=== PATIENT | male | born 1985 | race Caucasian/White ===

== ENCOUNTER 2017-12-10 00:31 | Emergency (ER) | payer OTHER ==
[~2017-12-10] VITALS: Ht 167.6 cm; Wt 124.6 kg
[~2017-12-10 00:31] MED LIST: IBUP-103 PO
[2017-12-10 00:35] VITALS: TEMP 36.8; Ht 167.6 cm; Wt 124.6 kg
[2017-12-10 00:55] VITALS: O2SAT 99
[2017-12-10 01:05] LABS: BASO % 0.2 %; BASO ABS # 0.03 K/uL (0-0.2); EOS ABS # 0.17 K/uL (0-0.5); HEMATOCRIT 51.9 % (42-52); IG# 0.06 K/uL (0.00-0.02); LYMPH % 16.2 %; LYMPH ABS # 2.83 K/uL (1.2-3.4); MEAN CELL VOLUME 83.3 fL (80-100); MEAN CORPUSCULAR HEMOGLOBIN 30.5 pg (25-34); MEAN CORPUSCULAR HGB CONC 36.6 g/dl (32-36); MEAN PLATELET VOLUME 10.5 fL (7.4-10.4); MONO % 6.5 %; MONO ABS # 1.14 K/uL (0.11-0.59); NEUT % 75.8 %; NEUT ABS # 13.28 K/uL (1.4-6.5); PLATELET COUNT 255 K/uL (130-400); RED CELL DISTRIBUTION WIDTH CV 12.8 % (11.5-14.5); RED CELL DISTRIBUTION WIDTH SD 37.8 fL (36.4-46.3); WHITE BLOOD COUNT 17.51 K/uL (4.8-10.8)
[2017-12-10] MEDS ORDERED: ALUM1SUS57 PO (01:13)
[2017-12-10 01:30] LABS: ALBUMIN 4.4 gm/dl (3.4-5.0); ALT/SGPT 31 U/L (12-78); AST/SGOT 17 U/L (15-37); BLOOD UREA NITROGEN 9 mg/dl (7-18); CALCIUM 9.3 mg/dl (8.5-10.1); CARBON DIOXIDE 27 mmol/L (21-32); CREATININE 1.13 mg/dl (0.60-1.40); GLUCOSE 119 mg/dl (70-99); LIPASE 105 U/L (73-393); POTASSIUM 3.5 mmol/L (3.5-5.1); SODIUM 139 mmol/L (136-145)
[2017-12-10 01:35] LABS: ALKALINE PHOSPHATASE 89 U/L (45-117); TOTAL PROTEIN 8.7 gm/dl (6.4-8.2)
[2017-12-10] MEDS ORDERED: OPTIRAY 320 IV PRN (01:45)
[2017-12-10 02:15] VITALS: BP 148/108
--- NOTE | 2017-12-10 02:43 | EMERGENCY ROOM VISIT NOTE ---
History First contact with patient: 00:33 Chief Complaint: ABDOMINAL PAIN Stated Complaint: SLIGHT CHEST PAIN,STOMACH GETS HARD,TUNNEL VISION History of Present Illness The patient is a 32 year old male who presents to the Emergency Room with complaints of upper abdominal discomfort with cough for the past several days. He describes the pain in his bloating, ranging in severity 5 out of 10. It does not radiate. Patient states eating sometimes makes it worse nothing really makes it better. Patient thinks his abdomen is distended. Patient states he is worried about everything that is going on and [facility] and got lightheaded and nearly passed out. He did get tunnel vision with his near syncopal episode. This was short-lived in nature. No complete loss of vision. Patient denies chest pain, dyspnea, headache, neck stiffness, fever, chills, productive cough, vomiting, diarrhea, flank pain, back pain, urinary symptoms. No prior surgeries. Patient does smoke and chew tobacco. He also smokes marijuana and occasionally drinks. No other recreational drugs per patient. Review of Systems An 10 system review of systems was completed with positives and pertinent negatives listed in the HPI. Past Medical/Surgical History Medical Problems: (1) No Known Active Medical Problems Social History Smoking Status: Current Every Day Smoker Smokeless Tobacco Use: Yes Alcohol Use: occasionally Drug Use: marijuana Housing Status: lives with family Occupation Status: employed Current/Historical Medications Scheduled PRN Alum & Mag Hydrox-Simethicone (Mylanta Maximum Strength 400-400-40 mg/5Ml), 1 DOSE PO DIRECTED PRN for HEARTBURN/INDIGESTION Physical Exam Vital Signs Date Time Temp Pulse Resp B/P (MAP) Pulse Ox O2 Delivery O2 Flow Rate FiO2 12/10/17 02:15 80 18 148/108 98 Room Air 12/10/17 00:59 94 12/10/17 00:55 99 Room Air 12/10/17 00:35 36.8 79 18 181/95 94 Room Air Physical Exam VITALS: Vitals are noted on the nurse's note and reviewed by myself. Vital signs hypertensive GENERAL: White male, in no acute distress, nondiaphoretic, well-developed well- nourished. SKIN: The skin was without rashes, erythema, edema, or bruising. There is no tenting of the skin. Capillary reflex less than 2 seconds. HEAD: Normocephalic atraumatic. EARS: External auditory canals clear, tympanic membranes pearly garcia without erythema or effusion bilaterally. EYES: Pupils equal round and reactive to light and accommodation. Conjunctivae without injection, sclerae without icterus. Extraocular movements intact. NOSE: Patent, turbinates without inflammation or discharge. MOUTH: Mucous membranes moist. Pharynx without erythema or exudate. Uvula midline. Airway patent. Tongue does not deviate. NECK: Supple without nuchal rigidity. No lymphadenopathy. No thyromegaly. Cervical spine is nontender. No JVD. HEART: Regular rate and rhythm without murmurs gallops or rubs. LUNGS: Clear to auscultation bilaterally without wheezes, rales or rhonchi. No retractions or accessory muscle use. ABDOMEN: Positive bowel sounds x 4. Normal tympanic percussion. Soft, protuberant, obese, tender to palpation upper abdomen, without masses or organomegaly. Parmar sign negative. No guarding or rebound tenderness. No CVA tenderness MUSCULOSKELETAL: No muscle atrophy, erythema, or edema noted. NEURO: Patient was alert and oriented to person place and time. Normal sensation to light and sharp touch. No focal neurological deficits. Medical Decision & Procedures Laboratory Results 12/10/17 00:55 Red Blood Count 6.23, Mean Corpuscular Volume 83.3, Mean Corpuscular Hemoglobin 30.5, Mean Corpuscular Hemoglobin Concent 36.6, Mean Platelet Volume 10.5, Neutrophils (%) (Auto) 75.8, Lymphocytes (%) (Auto) 16.2, Monocytes (%) (Auto) 6.5, Eosinophils (%) (Auto) 1.0, Basophils (%) (Auto) 0.2, Neutrophils # (Auto) 13.28, Lymphocytes # (Auto) 2.83, Monocytes # (Auto) 1.14, Eosinophils # (Auto) 0.17, Basophils # (Auto) 0.03 12/10/17 00:55 Test 12/10/17 00:55 12/10/17 00:58 White Blood Count 17.51 K/uL (4.8-10.8) Red Blood Count 6.23 M/uL (4.7-6.1) Hemoglobin 19.0 g/dL (14.0-18.0) Hematocrit 51.9 % (42-52) Mean Corpuscular Volume 83.3 fL (80-100) Mean Corpuscular Hemoglobin 30.5 pg (25-34) Mean Corpuscular Hemoglobin Concent 36.6 g/dl (32-36) Platelet Count 255 K/uL (130-400) Mean Platelet Volume 10.5 fL (7.4-10.4) Neutrophils (%) (Auto) 75.8 % Lymphocytes (%) (Auto) 16.2 % Monocytes (%) (Auto) 6.5 % Eosinophils (%) (Auto) 1.0 % Basophils (%) (Auto) 0.2 % Neutrophils # (Auto) 13.28 K/uL (1.4-6.5) Lymphocytes # (Auto) 2.83 K/uL (1.2-3.4) Monocytes # (Auto) 1.14 K/uL (0.11-0.59) Eosinophils # (Auto) 0.17 K/uL (0-0.5) Basophils # (Auto) 0.03 K/uL (0-0.2) RDW Standard Deviation 37.8 fL (36.4-46.3) RDW Coefficient of Variation 12.8 % (11.5-14.5) Immature Granulocyte % (Auto) 0.3 % Immature Granulocyte # (Auto) 0.06 K/uL (0.00-0.02) Anion Gap 7.0 mmol/L (3-11) Est Creatinine Clear Calc Drug Dose 118.0 ml/min Estimated GFR () 99.8 Estimated GFR (Non- 86.1 BUN/Creatinine Ratio 7.8 (10-20) Calcium Level 9.3 mg/dl (8.5-10.1) Total Bilirubin 0.9 mg/dl (0.2-1) Direct Bilirubin 0.2 mg/dl (0-0.2) Aspartate Amino Transf (AST/SGOT) 17 U/L (15-37) Alanine Aminotransferase (ALT/SGPT) 31 U/L (12-78) Alkaline Phosphatase 89 U/L (45-117) Troponin I < 0.015 ng/ml (0-0.045) Total Protein 8.7 gm/dl (6.4-8.2) Albumin 4.4 gm/dl (3.4-5.0) Lipase 105 U/L (73-393) Bedside Troponin I < 0.030 ng/ml (0-0.045) ED Course Prior records/ancillary studies reviewed. Triage Nursing notes reviewed. The patient's history was concerning for upper abdominal pain. Differential diagnosis: Etiologies such as appendicitis, cardiac, diverticulitis, PUD, biliary pathology , UTI, pancreatitis, obstruction, mesenteric ischemia, aortic pathology, infections, inflammatory bowel disease, renal colic, as well as others were entertained. Physical examination findings: As above. ER treatment provided: pt was observed On reassessment the patient felt better. Diagnostics interpreted by me: ECG: Normal sinus, normal intervals, no acute ST-T wave changes. Impression normal sinus rhythm interpreted by myself The labs revealed leukocytosis, per chart review patient normally has an elevated white blood count. Imaging studies: Chest x-ray with no acute consolidation, pneumothorax free of my interpretation CT ABDOMEN & PELVIS: No acute findings in the abdomen and pelvis to explain patient's symptoms. The liver, gallbladder, biliary tree, pancreas, spleen, stomach, small bowel, colon, and appendix are normal. No bowel wall thickening or bowel obstruction. Too small to characterize hypodensities within the mid right kidney and inferior left kidney presumably represent small cysts. Recommend follow-up ultrasound to demonstrate interval stability. No hydronephrosis or nephrolithiasis. Bilateral L5 pars defect with out significant anterolisthesis at L5-S1. There is partial ceases at L4-5 likely due to degenerative disc disease and facet arthropathy. Radiologist: Milagros Giles MD Exam and history seem consistent with abdominal pain with unclear etiology. Patient has had a chronic leukocytosis by chart review. He was advised to follow-up family care for this. Is advised to get an outpatient ultrasound for possible cyst seen on CT imaging. Patient was neurovascularly and neurologically intact. He did not have acute abdomen on exam. He was well- appearing. Patient was encouraged to quit smoking doing illegal drugs. He is advised to return to the ER meaty for abdominal pain, fevers, vomiting, worsening signs or symptoms or as needed.By the evaluation outlined above emergent etiologies such as appendicitis, diverticulitis, PUD, biliary pathology , UTI, pancreatitis, obstruction, mesenteric ischemia, aortic pathology, infections, inflammatory bowel disease, renal colic, as well as others were deemed relatively unlikely. The pt informed about the findings as listed above. All questions were answered and pleased with the treatment. Return instructions were outlined and the patient was discharged in stable condition. Referral: The patient was referred back to their primary care physician for follow-up in 2 to 3 days for a recheck of the current condition. Case reviewed with my attending The chart was completed utilizing [employer] Speech voice recognition software. Grammatical errors, random word insertions, pronoun errors, and incomplete sentences are an occassional consequence of this system due to software limitations, ambient noise, and hardware issues. Any formal questions or concerns about the content, text, or information contained within the body of this dictation should be directly addressed to the physician nurseryman assistant for clarification. Medical Decision As above Medication Reconcilliation Current Medication List: was personally reviewed by me Blood Pressure Screening Patient's blood pressure: Elevated blood pressure Blood pressure disposition: Elevated BP felt to be situational Impression Primary Impression: Upper abdominal pain Additional Impression: Leukocytosis Departure Information Dispostion Home / Self-Care Condition GOOD Referrals No Doctor, Assigned (PCP) Patient Instructions My [facility] Additional Instructions Recommend stop smoking and illegal drugs. Ibuprofen(Motrin, Advil) may be used for fever or pain. Use 600mg every six hours as needed. Take with food. Avoid using more than 2400mg in a 24 hour period. Do not use 2400mg per day for more than three consecutive days without physician direction. Prolonged inappropriate use can lead to stomach upset or ulcers. (AND/OR) Acetaminophen(Tylenol) may be used for fever or pain. Use 500mg every six hours as needed. Avoid using more than 2000mg in a 24 hour period. You need to get an outpatient ultrasound on your kidneys. You need further workup for your chronically elevated white blood count. Your family doctor can do this. Rest and drink plenty of fluids as tolerated. Slow sips of water or sports drinks are recommended instead of large amounts all at once. Continue current medications. Once your stomach is settled start with a clear liquid diet (jello, soup broth, etc.) and then advance as tolerated. You should avoid full, heavy meals for about 24 hrs from the time your symptoms resolved. Return to the ER immediately for worsening or persistent abdominal pain, vomiting, fevers, chest pains, difficulty breathing, black or bloody stools, worsening of your condition, or as needed. Follow up with your primary physician in 2-3 days for a recheck of your current condition. Problem Qualifiers
[2017-12-10 02:58] VITALS: PULSE 75; O2SAT 100
--- NOTE | 2017-12-10 06:14 | DIAGNOSTIC IMAGING REPORT ---
CHEST ONE VIEW PORTABLE CLINICAL HISTORY: 32 years-old Male presenting with CHEST PAIN. TECHNIQUE: Portable upright AP view of the chest was obtained. COMPARISON: None. FINDINGS: Cardiomediastinal silhouette normal. No focal opacity. No large effusion or pneumothorax. Osseous structures normal. Upper abdomen normal. IMPRESSION: 1. No acute cardiopulmonary disease. Electronically signed by: Bhanu Washington M.D. 12/10/2017 6:13 AM Dictated Date/Time: 12/10/2017 6:12 AM
--- NOTE | 2017-12-10 07:01 | DIAGNOSTIC IMAGING REPORT ---
ABD/PELVIS IV CONTRAST ONLY CLINICAL HISTORY: 32 years-old Male presenting with upper abd pain. TECHNIQUE: Multidetector CT of the abdomen and pelvis was performed after the administration of intravenous contrast. IV contrast: 94 mL of Optiray 320. A dose lowering technique was used consistent with the principles of ALARA (as low as reasonably achievable). COMPARISON: None. CT DOSE (mGy.cm): The estimated cumulative dose is 1534.19 mGy.cm. FINDINGS: Gang Supervisor topogram: Unremarkable. Lung bases: Minimal basilar opacities, likely atelectasis. Normal heart size. No pericardial or pleural effusion. Liver: Normal morphology. No liver lesion. Patent hepatic vasculature. Biliary: No intrahepatic or extrahepatic biliary ductal dilatation. Normal gallbladder. Pancreas: Mild parenchymal atrophy. Spleen: Normal. Adrenal glands: Normal. Kidneys and ureters: Subcentimeter hypodensities likely cysts. Otherwise normal renal parenchyma. No nephrolithiasis. No hydronephrosis. Ureters normal. Bladder: Incompletely evaluated secondary to underdistention. Pelvic organs: Prostate and seminal vesicles normal. Bowel: Few diverticula in the proximal sigmoid colon. No bowel obstruction. The appendix is normal. Peritoneal cavity: No free fluid or intraperitoneal gas. Lymph nodes: Few prominent lymph nodes in the alfredo hepatis and portacaval region, likely reactive. No pathologically enlarged lymph nodes by CT size criteria. Vasculature: Aorta and IVC patent and normal in caliber. Abdominal wall: Gynecomastia. Musculoskeletal: Bilateral pars defects of L5. IMPRESSION: 1. No acute intra-abdominal pathology. 2. Few sigmoid colon diverticula without evidence of diverticulitis. Electronically signed by: Bhanu Washington M.D. 12/10/2017 6:59 AM Dictated Date/Time: 12/10/2017 6:53 AM
== END 2017-12-10 02:55 | disposition home or self-care (01) ==
LOC: C.EDB 00:32
DX: R10.10 Upper abdominal pain, unspecified (principal); R07.9 Chest pain, unspecified; D72.829 Elevated white blood cell count, unspecified; F17.210 Nicotine dependence, cigarettes, uncomplicated

== ENCOUNTER 2017-12-12 20:59 | Emergency (ER) | payer OTHER ==
[~2017-12-12] VITALS: Ht 167.6 cm; Wt 124.0 kg
[~2017-12-12 20:59] MED LIST changes: +ALUM1SUS57 PO; -IBUP-103 PO
[2017-12-12 21:14] VITALS: TEMP 37.3; Ht 167.6 cm; Wt 124.0 kg
[2017-12-12] MEDS ORDERED: LIDOCAINE HCL 2% VISC SOLN 20 ML UDC PO STA (21:30)
[2017-12-12] MEDS ORDERED: SODIUM CHLORIDE 0.9% 1000ML 1,000 ML IV STA (21:30)
[2017-12-12] MEDS ORDERED: DICYCLOMINE HCL 10 MG/ML 2 ML AMP IM ONE (21:30)
[2017-12-12] MEDS ORDERED: ALUMINUM/MAGNESIUM SUSP 30 ML UDC PO STA (21:30)
[2017-12-12] MEDS ORDERED: ONDANSETRON INJ 2 MG/ML 2 ML VIAL IV STA (21:30)
[2017-12-12 21:42] VITALS: O2SAT 99
[2017-12-12 21:53] LABS: BASO % 0.1 %; BASO ABS # 0.02 K/uL (0-0.2); EOS % 1.2 %; EOS ABS # 0.16 K/uL (0-0.5); HEMATOCRIT 50.2 % (42-52); IG# 0.04 K/uL (0.00-0.02); LYMPH % 17.9 %; LYMPH ABS # 2.41 K/uL (1.2-3.4); MEAN CELL VOLUME 82.2 fL (80-100); MEAN CORPUSCULAR HEMOGLOBIN 31.1 pg (25-34); MEAN CORPUSCULAR HGB CONC 37.8 g/dl (32-36); MEAN PLATELET VOLUME 10.8 fL (7.4-10.4); MONO % 6.8 %; MONO ABS # 0.92 K/uL (0.11-0.59); NEUT % 73.7 %; NEUT ABS # 9.95 K/uL (1.4-6.5); PLATELET COUNT 253 K/uL (130-400); RED CELL DISTRIBUTION WIDTH CV 12.4 % (11.5-14.5); RED CELL DISTRIBUTION WIDTH SD 37.1 fL (36.4-46.3)
[2017-12-12 22:18] LABS: ALBUMIN 4.2 gm/dl (3.4-5.0); CALCIUM 9.1 mg/dl (8.5-10.1); CREATININE 0.94 mg/dl (0.60-1.40); POTASSIUM 3.4 mmol/L (3.5-5.1)
[2017-12-12 22:21] LABS: TOTAL PROTEIN 8.3 gm/dl (6.4-8.2)
--- NOTE | 2017-12-12 22:43 | DIAGNOSTIC IMAGING REPORT ---
GALLBLADDER-ABD LIMITED CLINICAL HISTORY: upper abd pain pain. Nausea. TECHNIQUE: Ultrasound COMPARISON STUDY: None FINDINGS: Normal gallbladder. No shadowing gallstones. Common bile duct 3 mm. Liver is uniform. The pancreas and right kidney are unremarkable. Right kidney is negative for hydronephrosis. IMPRESSION: Normal study The above report was generated using voice recognition software. It may contain grammatical, syntax or spelling errors. Electronically signed by: Sarabjit Vee M.D. 12/12/2017 10:41 PM Dictated Date/Time: 12/12/2017 10:41 PM
[2017-12-12] MEDS ORDERED: SUCRALFATE 1 GM/10 ML UDC PO STA (23:31)
[2017-12-13] MEDS ORDERED: PANTOprazole SOD 40 MG TAB PO STA (00:07)
--- NOTE | 2017-12-13 00:23 | EMERGENCY ROOM VISIT NOTE ---
History First contact with patient: 21:23 Chief Complaint: ABDOMINAL PAIN Stated Complaint: KIDNEY PAIN (WAS IN ON TUESDAY) History of Present Illness The patient is a 32 year old male who presents to the Emergency Room with complaints of upper abdominal pain today after eating eggs and chicken noodle soup. Patient was seen here Tuesday night by myself for similar complaint. His CT scan then was negative. Patient states he was doing better until today. He states he was doing bland diet as instructed. He has an appointment Tuesday with his family care doctor. He describes the pain as bloating, ranging in severity 6 out of 10 throughout the upper abdomen with some reflux symptoms. Patient states he has now been having diarrhea. No recent antibiotics. No well water. He does camp though. No bad food exposure. Patient denies chest pain, dyspnea, nausea, vomiting, back pain, urinary symptoms, testicular pain, penile pain. No colonoscopy or endoscopy in the past. Review of Systems An 10 system review of systems was completed with positives and pertinent negatives listed in the HPI. Past Medical/Surgical History Medical Problems: (1) No Known Active Medical Problems Social History Smoking Status: Current Every Day Smoker Alcohol Use: occasionally Drug Use: marijuana Housing Status: lives with family Occupation Status: employed Current/Historical Medications Scheduled PRN Alum & Mag Hydrox-Simethicone (Mylanta Maximum Strength 400-400-40 mg/5Ml), 1 DOSE PO DIRECTED PRN for HEARTBURN/INDIGESTION Physical Exam Vital Signs Date Time Temp Pulse Resp B/P (MAP) Pulse Ox O2 Delivery O2 Flow Rate FiO2 12/12/17 22:45 77 20 157/114 97 Room Air 12/12/17 21:50 88 12/12/17 21:42 99 Room Air 12/12/17 21:14 37.3 92 18 167/111 99 Room Air Physical Exam VITALS: Vitals are noted on the nurse's note and reviewed by myself. Vital signs hypertensive. GENERAL: White male, in no acute distress, nondiaphoretic, well-developed well- nourished. SKIN: The skin was without rashes, erythema, edema, or bruising. There is no tenting of the skin. Capillary reflex less than 2 seconds. HEAD: Normocephalic atraumatic. EARS: External auditory canals clear, tympanic membranes pearly garcia without erythema or effusion bilaterally. EYES: Pupils equal round and reactive to light and accommodation. Conjunctivae without injection, sclerae without icterus. Extraocular movements intact. NOSE: Patent, turbinates without inflammation or discharge. MOUTH: Mucous membranes moist. Pharynx without erythema or exudate. Uvula midline. Airway patent. Tongue does not deviate. NECK: Supple without nuchal rigidity. No lymphadenopathy. No thyromegaly. Cervical spine is nontender. No JVD. HEART: Regular rate and rhythm without murmurs gallops or rubs. LUNGS: Clear to auscultation bilaterally without wheezes, rales or rhonchi. No retractions or accessory muscle use. ABDOMEN: Positive bowel sounds x 4. Normal tympanic percussion. Soft, protuberant, obese, tender to palpation upper abdomen, without masses or organomegaly. Parmar sign negative. No guarding or rebound tenderness. No CVA tenderness MUSCULOSKELETAL: No muscle atrophy, erythema, or edema noted. NEURO: Patient was alert and oriented to person place and time. Normal sensation to light and sharp touch. No focal neurological deficits. Medical Decision & Procedures Laboratory Results 12/12/17 21:40 Red Blood Count 6.11, Mean Corpuscular Volume 82.2, Mean Corpuscular Hemoglobin 31.1, Mean Corpuscular Hemoglobin Concent 37.8, Mean Platelet Volume 10.8, Neutrophils (%) (Auto) 73.7, Lymphocytes (%) (Auto) 17.9, Monocytes (%) (Auto) 6.8, Eosinophils (%) (Auto) 1.2, Basophils (%) (Auto) 0.1, Neutrophils # (Auto) 9.95, Lymphocytes # (Auto) 2.41, Monocytes # (Auto) 0.92, Eosinophils # (Auto) 0.16, Basophils # (Auto) 0.02 12/12/17 21:40 Test 12/12/17 21:40 White Blood Count 13.50 K/uL (4.8-10.8) Red Blood Count 6.11 M/uL (4.7-6.1) Hemoglobin 19.0 g/dL (14.0-18.0) Hematocrit 50.2 % (42-52) Mean Corpuscular Volume 82.2 fL (80-100) Mean Corpuscular Hemoglobin 31.1 pg (25-34) Mean Corpuscular Hemoglobin Concent 37.8 g/dl (32-36) Platelet Count 253 K/uL (130-400) Mean Platelet Volume 10.8 fL (7.4-10.4) Neutrophils (%) (Auto) 73.7 % Lymphocytes (%) (Auto) 17.9 % Monocytes (%) (Auto) 6.8 % Eosinophils (%) (Auto) 1.2 % Basophils (%) (Auto) 0.1 % Neutrophils # (Auto) 9.95 K/uL (1.4-6.5) Lymphocytes # (Auto) 2.41 K/uL (1.2-3.4) Monocytes # (Auto) 0.92 K/uL (0.11-0.59) Eosinophils # (Auto) 0.16 K/uL (0-0.5) Basophils # (Auto) 0.02 K/uL (0-0.2) RDW Standard Deviation 37.1 fL (36.4-46.3) RDW Coefficient of Variation 12.4 % (11.5-14.5) Immature Granulocyte % (Auto) 0.3 % Immature Granulocyte # (Auto) 0.04 K/uL (0.00-0.02) Urine Color DK YELLOW Urine Appearance CLEAR (CLEAR) Urine pH 5.0 (4.5-7.5) Urine Specific Buckhorn 1.034 (1.000-1.030) Urine Protein NEG (NEG) Urine Glucose (UA) NEG (NEG) Urine Ketones 1+ (NEG) Urine Occult Blood NEG (NEG) Urine Nitrite NEG (NEG) Urine Bilirubin NEG (NEG) Urine Urobilinogen NEG (NEG) Urine Leukocyte Esterase NEG (NEG) Anion Gap 8.0 mmol/L (3-11) Est Creatinine Clear Calc Drug Dose 141.5 ml/min Estimated GFR () 124.7 Estimated GFR (Non- 107.6 BUN/Creatinine Ratio 10.8 (10-20) Calcium Level 9.1 mg/dl (8.5-10.1) Total Bilirubin 1.2 mg/dl (0.2-1) Direct Bilirubin 0.2 mg/dl (0-0.2) Aspartate Amino Transf (AST/SGOT) 21 U/L (15-37) Alanine Aminotransferase (ALT/SGPT) 35 U/L (12-78) Alkaline Phosphatase 82 U/L (45-117) Total Protein 8.3 gm/dl (6.4-8.2) Albumin 4.2 gm/dl (3.4-5.0) Lipase 146 U/L (73-393) Medications Administered Medications (Trade) Dose Ordered Sig/Don Route Start Time Stop Time Status Last Admin Dose Admin Sodium Chloride 1,000 ml @ 999 mls/hr Q1H1M STAT IV 12/12/17 21:30 12/12/17 22:30 DC 12/12/17 21:44 999 MLS/HR Dicyclomine HCl (Bentyl Inj) 20 mg NOW ONCE IM 12/12/17 21:30 12/12/17 21:33 DC 12/12/17 21:44 20 MG Ondansetron HCl (Zofran Inj) 4 mg NOW STAT IV 12/12/17 21:30 12/12/17 21:33 DC 12/12/17 21:44 4 MG Lidocaine HCl (Viscous Lidocaine 2% Soln) 10 ml NOW STAT PO 12/12/17 21:30 12/12/17 21:33 DC 12/12/17 21:43 10 ML Al Hydroxide/Mg Hydroxide (Maalox Susp) 30 ml NOW STAT PO 12/12/17 21:30 12/12/17 21:33 DC 12/12/17 21:44 30 ML Sucralfate (Carafate Susp) 1 gm NOW STAT PO 12/12/17 23:31 12/12/17 23:32 DC 12/12/17 23:36 1 GM ED Course Prior records/ancillary studies reviewed. Triage Nursing notes reviewed. Additional history obtained from family. The patient's history was concerning for abdominal pain. Differential diagnosis: Etiologies such as appendicitis, diverticulitis, PUD, biliary pathology, UTI, pancreatitis, obstruction, mesenteric ischemia, aortic pathology, infections, inflammatory bowel disease, renal colic, as well as others were entertained. Physical examination findings: As above. ER treatment provided: GI cocktail On reassessment the patient felt better. Diagnostics interpreted by me: The labs revealed leukocytosis, improved from the other day. Imaging studies: [~ rep ct add3]] GALLBLADDER-ABD LIMITED CLINICAL HISTORY: upper abd pain pain. Nausea. TECHNIQUE: Ultrasound COMPARISON STUDY: None FINDINGS: Normal gallbladder. No shadowing gallstones. Common bile duct 3 mm. Liver is uniform. The pancreas and right kidney are unremarkable. Right kidney is negative for hydronephrosis. IMPRESSION: Normal study The above report was generated using voice recognition software. It may contain grammatical, syntax or spelling errors. Electronically signed by: Sarabjit Vee M.D. ABD/PELVIS IV CONTRAST ONLY CLINICAL HISTORY: 32 years-old Male presenting with upper abd pain. TECHNIQUE: Multidetector CT of the abdomen and pelvis was performed after the administration of intravenous contrast. IV contrast: 94 mL of Optiray 320. A dose lowering technique was used consistent with the principles of ALARA (as low as reasonably achievable). COMPARISON: None. CT DOSE (mGy.cm): The estimated cumulative dose is 1534.19 mGy.cm. FINDINGS: Braille Coder topogram: Unremarkable. Lung bases: Minimal basilar opacities, likely atelectasis. Normal heart size. No pericardial or pleural effusion. Liver: Normal morphology. No liver lesion. Patent hepatic vasculature. Biliary: No intrahepatic or extrahepatic biliary ductal dilatation. Normal gallbladder. Pancreas: Mild parenchymal atrophy. Spleen: Normal. Adrenal glands: Normal. Kidneys and ureters: Subcentimeter hypodensities likely cysts. Otherwise normal renal parenchyma. No nephrolithiasis. No hydronephrosis. Ureters normal. Bladder: Incompletely evaluated secondary to underdistention. Pelvic organs: Prostate and seminal vesicles normal. Bowel: Few diverticula in the proximal sigmoid colon. No bowel obstruction. The appendix is normal. Peritoneal cavity: No free fluid or intraperitoneal gas. Lymph nodes: Few prominent lymph nodes in the alfredo hepatis and portacaval region, likely reactive. No pathologically enlarged lymph nodes by CT size criteria. Vasculature: Aorta and IVC patent and normal in caliber. Abdominal wall: Gynecomastia. Musculoskeletal: Bilateral pars defects of L5. IMPRESSION: 1. No acute intra-abdominal pathology. 2. Few sigmoid colon diverticula without evidence of diverticulitis. Electronically signed by: Bhanu Washington M.D. Exam and history seem consistent with abdominal pain with unclear etiology. Patient did feel better after the GI cocktail and Carafate. This could be gastritis. He was started on PPI. Patient did CT scan a few days ago that was negative. Ultrasound was negative today. White count is improving. Patient was advised to follow-up with GI for further evaluation and workup for his ongoing symptoms. He is advised to bland diet. He was advised to follow-up as scheduled tomorrow with the family care doctor here in the ER sooner for abdominal pain, fevers, vomiting, worsening signs or symptoms or as needed. Using shared decision radiation process we both elected not to repeat the CAT scan. Patient understands the risks involved of possible infection or surgical interventions that might be warranted but seems less likely as he felt much improved after being medicated as above and had a normal ultrasound and CAT scan from the other day. Patient was unable to provide a stool specimen. He was advised he still the diarrhea to submit 1 to his family care doctor for further evaluation workup for his diarrhea. By the evaluation outlined above emergent etiologies such as appendicitis, diverticulitis, biliary pathology, UTI, pancreatitis, obstruction, mesenteric ischemia, aortic pathology, infections, inflammatory bowel disease, renal colic, as well as others were deemed relatively unlikely. The pt informed about the findings as listed above. All questions were answered and pleased with the treatment. Return instructions were outlined and the patient was discharged in stable condition. Outpatient prescription management: Protonix Referral: The patient was referred back to their primary care physician for follow-up in 2 to 3 days for a recheck of the current condition. Case reviewed with my attending The chart was completed utilizing [employer] Speech voice recognition software. Grammatical errors, random word insertions, pronoun errors, and incomplete sentences are an occassional consequence of this system due to software limitations, ambient noise, and hardware issues. Any formal questions or concerns about the content, text, or information contained within the body of this dictation should be directly addressed to the physician spa assistant manager for clarification. Medical Decision as above Medication Reconcilliation Current Medication List: was personally reviewed by me Blood Pressure Screening Patient's blood pressure: Elevated blood pressure Blood pressure disposition: Referred to PCP Impression Primary Impression: Upper abdominal pain Additional Impression: Diarrhea Departure Information Dispostion Home / Self-Care Condition GOOD Referrals No Doctor, Assigned (PCP) Patient Instructions [facility] [place] [facility] Additional Instructions Protonix 40 m tablet daily for next 2 weeks. Take this on an empty stomach. Try Maalox or Zantac for breakthrough symptoms for reflux. Avoid large meals. Avoid acidic foods. Rest and drink plenty of fluids as tolerated. Continue current medications. Avoid strenuous activities and anything that worsens your pain. Resume normal activities once your symptoms resolve. Return to the ER immediately for worsening or persistent chest pain, abdominal pain, black or blood in your stools, vomiting, fevers, chest pains, difficulty breathing, worsening of your condition, or as needed. Follow up with your primary physician tomorrow as scheduled for a recheck of your current condition. Recommend GI referral if symptoms persist. Recommend stool analysis if diarrhea persists. Problem Qualifiers
[2017-12-13] MEDS ORDERED: PANT40TA PO (00:24)
[2017-12-13 00:35] VITALS: BP 146/72; PULSE 82; O2SAT 98
== END 2017-12-13 00:41 | disposition home or self-care (01) ==
LOC: C.EDB 21:07 → C.EDA 12-13 00:41
DX: R10.10 Upper abdominal pain, unspecified (principal); R19.7 Diarrhea, unspecified; F17.200 Nicotine dependence, unspecified, uncomplicated; F12.90 Cannabis use, unspecified, uncomplicated